=== PATIENT | female | born 1990 | race Caucasian/White ===

== ENCOUNTER 2017-10-04 05:34 | Day surgery (SDC) | payer OTHER ==
[~2017-10-04] VITALS: Ht 162.6 cm; Wt 84.4 kg
[~2017-10-04 05:34] MED LIST: (None)20 M1 PO; ALBU90OI INH; AMOX250 PO; Amoxicillin500 MG PO; BENADRYL25 MG PO; BENZ100A PO; CEPH500 PO; Colace100 MG PO; Cyclobenzaprine5 MG; Cyclobenzaprine5 MG PO; DICLEGIS DR 101 EACH PO; DOCU100 PO; DOXY100 PO; HYDACE5 PO; IBUP600 PO; IBUP800 PO; MEDR150I; MELO7.5 PO; METO5A PO; METPRE4DP PO; NITR100 PO; Naprosyn500 MG PO; Norco 5-325 Ta1 EACH PO; OXYACE5T PO; PROCODE120 PO; PRODEXEL PO; PROM25 PO; PSEU120ER PO; Phenergan25 M1 PO; Prednisone20 MG PO; Pyridium200 MG PO; TRAZ50 PO; Ultram50 MG PO; Valium5 MG PO; Verotin-Gr Cap1 EACH PO; Zantac150 MG PO; Zithromax250 MG PO; Zofran4 MG PO; Zovirax200 MG PO
[2018-01-24] MEDS ORDERED: CYCL10 PO (21:11)
[2018-01-24] MEDS ORDERED: LIDO700A20 TOP (21:11)
== END 2017-10-04 10:11 | disposition home or self-care (01) ==
LOC: ORSCMMR 05:34
PROVIDERS: Obstetrics & Gynecology
PROC: 0UT14ZZ Resection of Left Ovary, Percutaneous Endoscopic Approach (ICD-10-PCS; principal; 2017-10-04 07:30)
PROC: 0U5F4ZZ Destruction of Cul-de-sac, Percutaneous Endoscopic Approach (ICD-10-PCS; principal; 2017-10-04 07:30)
DX: N80.3 Endometriosis of pelvic peritoneum (principal); D27.1 Benign neoplasm of left ovary; N83.12 Corpus luteum cyst of left ovary
CPT/HCPCS: 88305; J0171; J1100; J2250; J2370; J2405; J2710; J2765; J3010; J7030; J7120

== ENCOUNTER 2018-05-04 19:47 | Emergency (ER) | payer OTHER ==
[~2018-05-04] VITALS: Ht 157.5 cm; Wt 83.9 kg
[~2018-05-04 19:47] MED LIST changes: +CYCL10 PO; +LIDO700A20 TOP
[2018-05-04] MEDS ORDERED: CYCL10 PO (20:37)
[2018-05-04] MEDS ORDERED: Naprosyn500 MG PO (20:37)
== END 2018-05-04 21:03 | disposition home or self-care (01) ==
LOC: ER 19:47
DX: S39.012A Strain of muscle, fascia and tendon of lower back, initial encounter (principal); F17.210 Nicotine dependence, cigarettes, uncomplicated; Z88.6 Allergy status to analgesic agent; X58.XXXA Exposure to other specified factors, initial encounter
CPT/HCPCS: 36415; 99283

== ENCOUNTER → 2018-11-08 | Outpatient (CLI) | payer OTHER | END | disposition home or self-care (01) | LOC: LAB SHORT 15:09 → LAB 15:09 | PROVIDERS: Obstetrics & Gynecology | DX: Z01.419 Encounter for gynecological examination (general) (routine) without abnormal findings (principal) | CPT/HCPCS: G0123 ==

== ENCOUNTER → 2018-12-08 | Outpatient (CLI) | payer OTHER ==
[2018-12-08 16:50] LABS: BASOPHILS ABSOLUTE AUTO 0.05 K/mm3 (0.00-0.23); BASOPHILS PERCENT AUTO 1 % (0-2); EOSINOPHILS PERCENT AUTO 2 % (0-6); Hematocrit 45.7 % (33.0-51.0); Hemoglobin 15.5 g/dL (11.5-16.0); IMMATURE GRAN ABSOLUTE AUTO 0.02 K/mm3 (0.00-0.10); IMMATURE GRAN PERCENT AUTO 0 % (0-1); LYMPHOCYTES ABSOLUTE AUTO 2.76 K/mm3 (0.84-5.20); LYMPHOCYTES PERCENT AUTO 29 % (21-46); MONOCYTES ABSOLUTE AUTO 0.62 K/mm3 (0.16-1.47); MONOCYTES PERCENT AUTO 7 % (4-13); Mean Corpuscular HGB 28.4 pg (26.0-34.0); Mean Corpuscular HGB Conc 33.9 g/dL (31.5-36.5); Mean Corpuscular Volume 84 fL (80-100); NEUTROPHILS ABSOLUTE AUTO 5.74 K/mm3 (1.96-9.15); NEUTROPHILS PERCENT AUTO 61 % (41-73); Platelet Count 236 K/mm3 (150-400); RDW Coefficient Variation 12.6 % (11.7-14.2); RDW Standard Deviation 37.8 fL (35.1-46.3); Red Blood Cell Count 5.45 M/mm3 (3.80-5.20); White Blood Cell Count 9.39 K/mm3 (4.00-11.30)
[2018-12-08 16:58] LABS: Alanine Aminotransfer (ALT/SGP 68 U/L (12-78); Albumin, Blood 4.1 g/dL (3.4-5.0); Albumin/Globulin Ratio 1.2 (0.8-1.8); Alk Phos 71 U/L (40-126); Anion Gap 11 mmol/L (6-16); Aspartate Aminotrans (AST/SGOT 36 U/L (12-37); Bilirubin, Total 0.2 mg/dL (0.1-1.0); Blood Urea Nitrogen 10 mg/dL (8-24); Bun/Creatinine Ratio 11.8 (12.0-20.0); CO2, Blood 26 mmol/L (21-32); Chloride, Blood 105 mmol/L (98-108); Creatinine, Blood 0.85 mg/dL (0.40-1.00); Globulin, Blood 3.5 g/dL (2.2-4.0); Glomerular Filtration Rate >60 (60-); Glucose, Blood 93 mg/dL (70-99); Potassium, Blood 3.8 mmol/L (3.5-5.5); Sodium, Blood 142 mmol/L (136-145); Thyroid Stimulating Hormone 1.101 uIU/mL (0.360-4.800); Total Protein, Blood 7.6 g/dL (6.4-8.2)
== END | disposition home or self-care (01) ==
LOC: LAB EV 16:34 → LAB SHORT 16:34
PROVIDERS: Physician Assistant
DX: R49.0 Dysphonia (principal)
CPT/HCPCS: 80053; 84443; 85025

== ENCOUNTER 2019-06-11 18:25 | Emergency (ER) | payer OTHER ==
[~2019-06-11] VITALS: Ht 157.5 cm; Wt 86.2 kg
[2019-06-11] MEDS ORDERED: TRAZ50 PO (19:30)
== END 2019-06-11 20:22 | disposition home or self-care (01) ==
LOC: ER 18:25
DX: S80.12XA Contusion of left lower leg, initial encounter (principal); F17.210 Nicotine dependence, cigarettes, uncomplicated; Z88.2 Allergy status to sulfonamides; Z79.899 Other long term (current) drug therapy; W01.10XA Fall on same level from slipping, tripping and stumbling with subsequent striking against unspecified object, initial encounter
CPT/HCPCS: 73590; 99283-25

== ENCOUNTER 2019-06-14 13:55 | Emergency (ER) | payer OTHER ==
[~2019-06-14] VITALS: Ht 157.5 cm; Wt 88.9 kg
== END 2019-06-14 15:12 | disposition home or self-care (01) ==
LOC: ER 13:55
DX: S83.92XA Sprain of unspecified site of left knee, initial encounter (principal); F17.210 Nicotine dependence, cigarettes, uncomplicated; Z88.8 Allergy status to other drugs, medicaments and biological substances; Z79.899 Other long term (current) drug therapy; X58.XXXA Exposure to other specified factors, initial encounter
CPT/HCPCS: 73700; 99283-25

== ENCOUNTER 2019-09-10 18:09 | Emergency (ER) | payer OTHER ==
[~2019-09-10] VITALS: Ht 160 cm; Wt 83.9 kg
== END 2019-09-10 19:33 | disposition home or self-care (01) ==
LOC: ER 18:09
DX: G43.109 Migraine with aura, not intractable, without status migrainosus (principal); M25.562 Pain in left knee; M25.552 Pain in left hip; G89.29 Other chronic pain; Z88.6 Allergy status to analgesic agent; F17.210 Nicotine dependence, cigarettes, uncomplicated
CPT/HCPCS: 36415; 96361; 96374; 96375; 99283-25; J0780; J1200; J1885; J7030

== ENCOUNTER 2019-09-15 20:32 | Emergency (ER) | payer OTHER ==
[~2019-09-15] VITALS: Ht 160 cm; Wt 83.9 kg
== END 2019-09-16 00:23 | disposition home or self-care (01) ==
LOC: ER 20:32
DX: G43.909 Migraine, unspecified, not intractable, without status migrainosus (principal); F17.210 Nicotine dependence, cigarettes, uncomplicated; Z88.6 Allergy status to analgesic agent
CPT/HCPCS: 96374; 96375; 99283-25; J1100; J1200; J1885; J2765

== ENCOUNTER 2019-10-18 10:11 | Emergency (ER) | payer OTHER ==
[~2019-10-18] VITALS: Ht 157.5 cm; Wt 83.9 kg
== END 2019-10-18 11:06 | disposition home or self-care (01) ==
LOC: ER 10:11
DX: J11.1 Influenza due to unidentified influenza virus with other respiratory manifestations (principal); F17.210 Nicotine dependence, cigarettes, uncomplicated; Z88.6 Allergy status to analgesic agent
CPT/HCPCS: 16020; 99283-25

== ENCOUNTER 2020-09-27 17:56 | Emergency (ER) | payer OTHER ==
[~2020-09-27] VITALS: Ht 157.5 cm; Wt 81.7 kg
== END 2020-09-27 20:29 | disposition home or self-care (01) ==
LOC: ER 17:56
DX: S60.011A Contusion of right thumb without damage to nail, initial encounter (principal); F17.210 Nicotine dependence, cigarettes, uncomplicated; W23.0XXA Caught, crushed, jammed, or pinched between moving objects, initial encounter; Y93.89 Activity, other specified
CPT/HCPCS: 29125; 73130; 99283-25

== ENCOUNTER → 2021-10-25 | Outpatient (CLI) | payer OTHER ==
[2021-10-25 12:06] LABS: Source, Urine Clean Catch
[2021-10-25 12:28] LABS: Bacteria Many /hpf; Mucus Light (0-Heavy); Renal Epithelial Rare /hpf (0-Rare); Squamous Epithelial Cells Many /hpf (Few); Transitional Epithelial Cells Rare /hpf (0-Rare); White Blood Cells, Urine 50-100 /hpf (0-5)
[2021-10-26 13:17] LABS: Candida species (DNA Probe) Negative (NEGATIVE); G. vaginalis (DNA Probe) Positive (NEGATIVE); T. vaginalis (DNA Probe) Negative (NEGATIVE)
== END ==
LOC: LAB SHORT 12:03 → LAB 12:03
PROVIDERS: Physician Assistant
DX: N76.0 Acute vaginitis (principal)
CPT/HCPCS: 81015; 87077; 87086; 87186; 87480; 87510; 87660

== ENCOUNTER 2022-03-08 21:13 | Emergency (ER) | payer OTHER ==
[~2022-03-08] VITALS: Ht 167.6 cm; Wt 88.5 kg
[2022-03-09] MEDS ORDERED: PSEUDOEPHEDRINE30 M1 PO (03:08)
[2022-03-09] MEDS ORDERED: FLONASE ALLERG9.9 M2 (03:08)
== END 2022-03-09 03:30 | disposition home or self-care (01) ==
LOC: ER 21:13
DX: H92.03 Otalgia, bilateral (principal); R09.82 Postnasal drip; F17.210 Nicotine dependence, cigarettes, uncomplicated; Z88.6 Allergy status to analgesic agent; Z79.899 Other long term (current) drug therapy
CPT/HCPCS: 71046

== ENCOUNTER → 2022-05-12 | Outpatient (CLI) | payer OTHER ==
[~2022-05-12] MED LIST changes: +FLONASE ALLERG9.9 M2; +PSEUDOEPHEDRINE30 M1 PO
[2022-05-13 15:10] LABS: HPV 16 Negative (Negative); HPV 18 Negative (Negative); HPV OTHER HR TYPES Negative (Negative)
== END | disposition home or self-care (01) ==
LOC: LAB SHORT 16:58
PROVIDERS: Family Medicine
DX: Z01.419 Encounter for gynecological examination (general) (routine) without abnormal findings (principal)
CPT/HCPCS: 87624; G0123

== ENCOUNTER 2022-07-06 06:55 | Day surgery (SDC) | payer OTHER ==
[~2022-07-06] VITALS: Ht 157.5 cm; Wt 99.0 kg
[~2022-07-06 06:55] MED LIST changes: +MULVITA PO
== END 2022-07-06 17:28 | disposition home or self-care (01) ==
LOC: ORSCMMR 06:55 → ORD 09:00 → ORSCMMR 09:00 → SURS 12:40 → ORSCMMR 17:28
PROVIDERS: Obstetrics & Gynecology
PROC: 0UT94ZZ Resection of Uterus, Percutaneous Endoscopic Approach (ICD-10-PCS; principal; 2022-07-06 10:00)
DX: N92.0 Excessive and frequent menstruation with regular cycle (principal); N80.329 Endometriosis of the posterior cul-de-sac, unspecified depth; K21.9 Gastro-esophageal reflux disease without esophagitis; J45.909 Unspecified asthma, uncomplicated; E66.01 Morbid (severe) obesity due to excess calories; Z68.41 Body mass index [BMI] 40.0-44.9, adult; Z87.891 Personal history of nicotine dependence; Z79.899 Other long term (current) drug therapy
CPT/HCPCS: 58570; S2900; 88307; A9270; J1100; J1580; J1885; J2250; J2405; J2704; J2795; J3010; J7120

== ENCOUNTER → 2022-11-26 | Outpatient (CLI) | payer OTHER ==
[2022-11-26 16:55] LABS: Adenovirus F 40/41 Not Detected (NOT DETECT); Astrovirus Not Detected (NOT DETECT); Campylobacter Sp Not Detected (NOT DETECT); Cryptosporidium Not Detected (NOT DETECT); Cyclospora Cayetanensis Not Detected (NOT DETECT); E. Coli O157 Not Detected (NOT DETECT); Entamoeba Histolytica Not Detected (NOT DETECT); Enteroaggregative E. coli-EAEC Not Detected (NOT DETECT); Enteropathogenic E. coli-EPEC Not Detected (NOT DETECT); Enterotoxigenic E. coli-ETEC Not Detected (NOT DETECT); Giardia Lamblia Not Detected (NOT DETECT); Norovirus GI/GII Detected (NOT DETECT); Plesiomonas Shigelloides Not Detected (NOT DETECT); Rotavirus A Not Detected (NOT DETECT); Salmonella Sp Not Detected (NOT DETECT); Sapovirus Not Detected (NOT DETECT); Shiga Toxin-prod E. coli-STEC Not Detected (NOT DETECT); Shigella/Enteroin E. coli-EIEC Not Detected (NOT DETECT); Vibrio Cholerae Not Detected (NOT DETECT); Vibrio Sp Not Detected (NOT DETECT); Yersinia Enterocolitica Not Detected (NOT DETECT)
== END | disposition home or self-care (01) ==
LOC: LAB SHORT 08:51 → LAB 08:51
PROVIDERS: Nurse Practitioner Family
DX: K51.50 Left sided colitis without complications (principal)
CPT/HCPCS: 87338; 87507; 89055

== ENCOUNTER → 2022-12-22 | Outpatient (CLI) | payer OTHER ==
[2022-12-22 13:55] LABS: Candida species (DNA Probe) Negative (NEGATIVE); G. vaginalis (DNA Probe) Positive (NEGATIVE); T. vaginalis (DNA Probe) Negative (NEGATIVE)
== END | disposition home or self-care (01) ==
LOC: LAB 10:32 → LAB SHORT 10:32
PROVIDERS: Advanced Practice Midwife
DX: N76.0 Acute vaginitis (principal)
CPT/HCPCS: 87480; 87510; 87660

== ENCOUNTER → 2023-02-03 | Outpatient (CLI) | payer OTHER ==
[2023-02-04 09:46] LABS: Candida species (DNA Probe) Positive (NEGATIVE); G. vaginalis (DNA Probe) Negative (NEGATIVE); T. vaginalis (DNA Probe) Negative (NEGATIVE)
[2023-02-05 02:11] LABS: CHLAMYDIA TRACHOMATIS, NAA Negative (Negative)
== END | disposition home or self-care (01) ==
LOC: LAB 11:02 → LAB SHORT 11:02
PROVIDERS: Obstetrics & Gynecology
DX: Z11.3 Encounter for screening for infections with a predominantly sexual mode of transmission (principal); N76.0 Acute vaginitis
CPT/HCPCS: 87480; 87491; 87510; 87591; 87660

== ENCOUNTER → 2025-03-23 | Outpatient (CLI) | payer OTHER ==
[~2025-03-23] MED LIST changes: +Adipex-P37.5 M1 PO; +FAMO20; +HYDR25SUP PR; +HYDROCORTISON28.4 G5 TOP; +OMEPRAZOLE PO; +SENNA LAXATIVE8.6 MG PO
== END | disposition home or self-care (01) ==
LOC: LAB 07:50 → LAB SHORT 07:50
DX: K29.70 Gastritis, unspecified, without bleeding (principal); B96.81 Helicobacter pylori [H. pylori] as the cause of diseases classified elsewhere
CPT/HCPCS: 87338